=== PATIENT | female | born 1985 ===

== ENCOUNTER 2017-12-17 14:09 | Inpatient (IN) | payer BC, OTHER ==
[2017-12-17 15:46] LABS: PLATELET COUNT 175 10^3/uL (150-400)
[2017-12-17] MEDS ORDERED: ACETAMINOPHEN 500 MG TAB PO PRN (17:02)
[2017-12-17] MEDS ORDERED: MAGNESIUM OXIDE 400 MG TAB PO ONE (17:02)
--- NOTE | 2017-12-17 18:25 | PDGENHP ---
History and Physical History and Physical: CARE: [facility], Dr Hannah Witt HPI: Ms. Marga Swartz is a 32 yo @39-3wks that presents to L&D with complaints of headache and concern re: blood pressure. she states she has been receiving care at [facility] in [place] but has moved to [place] and wishes to deliver here at [facility]. She denies any visual changes, epigastric pain. She took Tylenol x1 dose this morning- with no relief of headache. She denies any regular contractions, LOF, VB. EDC: 12/21/17 which is based on Ultrasound at 6-3 weeks. LMP is unsure Her is complicated by: h/o PTD @ 33wks, UTI Review of Systems: Constitutional: Denies any fever, chills, or fatigue HEENT: denies any visual changes, difficulty swallowing, hearing loss Cardiovascular: Denies any chest pain, palpitations, leg swelling Respiratory: denies any cough, wheezing, or shortness of breathe GI: Denies any nausea, vomiting, diarrhea, constipation : denies any dysuria, urgency, frequency, vaginal bleeding Musculoskeletal: denies any muscle or bone pain Skin: denies any rashes Neuro: + headache, denies any seizures, lightheadedness, dizziness, or loss of consciousness Psychiatric: denies any depression, anxiety, or SI/HI thoughts HISTORY: Previous OB history: @ 33wks (PTL with ?abruption) Past medical history: noncontributory Past surgical history: appendectomy. ACL repair, oral surgery Medications: PNV, 17-OHP (until 36wks), nifedipine (until 36wks), macrobid, betamethasone Allergies (list reaction): NKDA LABS: Rh: O+ ABS: Neg Rubella: Immune HbsAg: NR HIV: NR VDRL: NR 1hr: 101 GC: Neg Chlamydia: Neg Pap: unknown GBS: negative PHYSICAL EXAM: Constitutional: WN, A&Ox3 HEENT: normocephalic atraumatic, supple Heart: RRR, no murmur Chest: CTA-B Abdomen: Soft, nontender, gravid SVE: 1/th/high Extremities: no edema, negative homans sign Neuro: grossly normal Psych: normal affect assessment: Reassuring FHTs, [id number] +accels, no decels, moderate variability Contractions: toco none Assessment: 1) [id number] with IUP@ 39-3 (6) 2) elective IOL 3) GBS negative 4) Cat 1 FHR tracing 5) Proteinuria (P:C 0.5) Plan: 1) Admit to L&D 2) monitor BPs closely 3) escobedo bulb placed 4) pitocin to be started in AM 5) consulted with Dr Frank- aware and agrees with plan of care
[2017-12-17] MEDS ORDERED: LR 1,000 ML IV PRN (18:26)
[2017-12-17] MEDS ORDERED: OLIVE OIL 118 ML BTL MISC PRN (18:26)
[2017-12-17] MEDS ORDERED: EPSOM SALT 454 GM TP PRN (18:26)
[2017-12-17] MEDS ORDERED: OXYTOCIN/RINGERS LACTATE 1,000 ML IV PRN (18:26)
[2017-12-17] MEDS ORDERED: MISOPROSTOL 200 MCG TAB PR PRN (18:26)
[2017-12-17] MEDS ORDERED: TERBUTALINE SULFATE 1 MG/ML VIAL IV PRN (18:26)
[2017-12-17] MEDS ORDERED: LIDOCAINE 1% 300 MG/30 ML SDV SC PRN (18:26)
[2017-12-17] MEDS ORDERED: IBUPROFEN 600 MG TAB PO PRN (18:26)
[2017-12-17] MEDS ORDERED: LR 500 ML IV PRN (18:26)
[2017-12-17] MEDS ORDERED: OXYTOCIN/RINGERS LACTATE 500 ML IV SCH (18:30)
[2017-12-17] MEDS ORDERED: ZOLPIDEM TARTRATE 5 MG TAB PO ONE (20:00)
[2017-12-18] MEDS ORDERED: PHENYLEPHRINE HCL 100 MCG/ML SYR ONE (02:58)
[2017-12-18] MEDS ORDERED: BUPIVACAINE 0.25% 30 ML SDV ONE (02:58)
[2017-12-18] MEDS ORDERED: fentaNYL 100 MCG/2 ML INJ ONE (02:59)
[2017-12-18] MEDS ORDERED: fentaNYL 200 MCG, BUPIVACAINE 0.5% 20 ML in NS 100 ML EP SCH (04:00)
--- NOTE | 2017-12-18 04:02 | PREANESOB ---
Obstetric Pre-Anesthesia Info - General Info Proposed Procedure: Induction of labor and delivery. : 2 Para: 1 LOUISE: 12/21/17 Gestational Age: 39 week(s) and 3 day(s) - Info Status: Full Term Monitors: External FHR Baseline (bpm): 125 FHR Pattern: Reassuring - Labor Status Cervical Dilation per last OB SVE: 5 Pitocin: Planned Indications for Labor Analgesia: Induction of Labor, Pain Control Labor Epidural: Proposed Anesthesia Allergies/Adverse Reactions: Allergy/AdvReac Type Severity Reaction Status Date / Time No Known Allergies Allergy Unverified 12/17/17 15:29 Home Medications: Medication Instructions Recorded Vit27&Calcium/Iron/FA 1 tab PO DAILY 12/17/17 [] Visit Medications: Generic Name Dose Route Start Last Admin Trade Name Freq PRN Reason Stop Dose Admin Acetaminophen 1,000 mg 12/17/17 17:02 12/17/17 17:23 Tylenol PO 06/15/18 17:01 1,000 mg Q6HRS PRN Administration Pain, Mild/Fever, Can Take PO Lactated Ringer's 1,000 mls @ 0 mls/hr 12/17/17 18:26 Lr IV 12/18/17 18:25 PRN PRN SEE PROTOCOL CONDITIONS Protocol Per Protocol Lactated Ringer's 500 mls @ 500 mls/hr 12/17/17 18:26 Lr IV 12/18/17 18:26 PRN PRN Maternal Hypotension Oxytocin/Lactated Ringer's 1,000 mls @ 125 mls/hr 12/17/17 18:26 Pitocin 20 Units/Lr (Premix) IV PRN PRN Post bleeding Oxytocin/Lactated Ringer's 500 mls @ 0 mls/hr 12/17/17 18:30 Pitocin 30 Units/Lr (Premix) IV 06/15/18 18:29 CONT [facility] Protocol Per Protocol Fentanyl 200 mcg/ Bupivacaine 100 mls @ 0 mls/hr 12/18/17 04:00 HCl 20 ml/ Sodium Chloride EP 12/28/17 03:59 CONT [facility] Protocol As Directed Ibuprofen 600 mg 12/17/17 18:26 Motrin PO ONCE PRN post , pain Lidocaine HCl 300 mg 12/17/17 18:26 Lidocaine Hcl 1% SC 06/15/18 18:25 ONCE PRN episiotomy Magnesium Sulfate 454 gm 12/17/17 18:26 Epsom Salt TP 06/15/18 18:25 Q1H PRN perineal discomfort Misoprostol 800 - 1,000 mcg 12/17/17 18:26 Cytotec FL ONCE PRN Vaginal Atony/Bleeding [place] Oil 118 ml 12/17/17 18:26 Sweet Oil MISC 06/15/18 18:25 ONCE PRN perineal massage Terbutaline Sulfate 0.25 mg 12/17/17 18:26 Brethine IV 06/15/18 18:25 ONCE PRN Tachysystole Discontinued Medications Generic Name Dose Route Start Last Admin Trade Name Freq PRN Reason Stop Dose Admin Bupivacaine HCl Confirm 12/18/17 02:58 Sensorcaine 0.25% Sdv Administered 12/18/17 02:59 Dose 30 ml .ROUTE .STK-MED ONE Fentanyl Confirm 12/18/17 02:59 Sublimaze Administered 12/18/17 03:00 Dose 100 mcg .ROUTE .STK-MED ONE Magnesium Oxide 400 mg 12/17/17 17:02 12/17/17 17:23 Magnesium Oxide PO 12/17/17 17:03 400 mg ONCE ONE Administration Phenylephrine HCl Confirm 12/18/17 02:58 Neosynephrine Administered 12/18/17 02:59 Dose 1,000 mcg .ROUTE .STK-MED ONE Zolpidem Tartrate 5 mg 12/17/17 20:00 12/17/17 20:39 Ambien PO 12/17/17 20:01 5 mg ONCE ONE Administration - Vital Signs Blood Pressure: 149/90 Heart Rate: 55 Height/Weight (Nursing): Height 165.1 cm Weight 70.307 kg - Focused Exam Neck exam: FROM Mallampati Score: Class 1 Mouth exam: normal dental/mouth exam Pulmonary: no respiratory distress Cardiovascular: regular rate and rhythym Labs: 12/17/17 15:30 12/17/17 15:30 Patient ABO/Rh O POSITIVE 12/17/17 18:30 Uric Acid 8.0 mg/dL (2.5-6.8) H 12/17/17 15:30 Total Bilirubin 0.3 mg/dL (0.1-1.4) 12/17/17 15:30 Conjugated Bilirubin 0.3 mg/dL (0.0-0.5) 12/17/17 15:30 Unconjugated Bilirubin 0.0 mg/dL (0.0-1.1) 12/17/17 15:30 AST 23 IU/L (14-46) 12/17/17 15:30 ALT 23 IU/L (9-52) 12/17/17 15:30 Lactate Dehydrogenase 511 IU/L (313-618) 12/17/17 15:30 - Plan Consent Signed and on Chart: Yes Patient/Guardian Understands and Agrees to Plan: Yes Urgent/Emergent Case: Clayton porter completed preop but documented later for safe timely pt care
[2017-12-18] MEDS ORDERED: PHENYLEPHRINE HCL 100 MCG/ML SYR IVP PRN (04:14)
[2017-12-18] MEDS ORDERED: ONDANSETRON 4 MG/2 ML VIAL IVP PRN ×2 (04:14→05:48)
--- NOTE | 2017-12-18 04:14 | POSTANESTH ---
Post Anesthetic Evaluation Cardiovascular Status: Normal, Stable, Similar to Pre-Op Cond Respiratory Status: Normal, Stable, Similar to Pre-op Cond. Level of Consciousness/Mental Status: Can Participate in Eval, Alert and Oriented Pain Control: Adequate, Prn Tx Ordered Nausea/Vomiting Control: Adequate, Prn Tx Ordered Complications Possibly Related to Anesthesia: None Noted (Comfortable and stable after phenylephrine x 1.)
[2017-12-18] MEDS ORDERED: LR 500 ML IV SCH (04:30)
[2017-12-18] MEDS ORDERED: fentaNYL 2MCG/ML/BUP 0.1% RTU 100 ML EP SCH (04:30)
[2017-12-18] MEDS ORDERED: LIDOCAINE 1% 300 MG/30 ML SDV ONE (05:24)
[2017-12-18] MEDS ORDERED: OLIVE OIL 118 ML BTL ONE (05:24)
[2017-12-18] MEDS ORDERED: TERBUTALINE SULFATE 1 MG/ML VIAL ONE (05:25)
[2017-12-18] MEDS ORDERED: MISOPROSTOL 200 MCG TAB ONE (05:25)
[2017-12-18] MEDS ORDERED: OXYTOCIN 10 UNIT/ML VIAL ONE (05:25)
[2017-12-18] MEDS ORDERED: AMMONIA AROMATIC 1 EACH AMP IH ONE (05:25)
--- NOTE | 2017-12-18 05:49 | OBPROG ---
Labor Progress Note Assessment/Plan: Assessment: [id number] with IUP@ 39-4wks (6) labor GBS Negative Cat 1 FHR tracing MALKA in place Plan: expectant management anticipate 12/18/17 06:10 Subjective/Intrapartum Course: 12/18/17 06:11 Pt doing well, reports some nausea and some lower "pressure in my cervix", denies any urge to push. She denies any headaches, visual changes, epigastric pain. She is comfortable with MALKA. FOB at BS and supportive. Objective: 12/17/17 15:30 12/17/17 15:30 Patient ABO/Rh O POSITIVE 12/17/17 18:30 Uric Acid 8.0 mg/dL (2.5-6.8) H 12/17/17 15:30 Total Bilirubin 0.3 mg/dL (0.1-1.4) 12/17/17 15:30 Conjugated Bilirubin 0.3 mg/dL (0.0-0.5) 12/17/17 15:30 Unconjugated Bilirubin 0.0 mg/dL (0.0-1.1) 12/17/17 15:30 AST 23 IU/L (14-46) 12/17/17 15:30 ALT 23 IU/L (9-52) 12/17/17 15:30 Lactate Dehydrogenase 511 IU/L (313-618) 12/17/17 15:30 Temp Pulse Resp BP Pulse Ox 55 L 149/90 H 12/18/17 04:12 12/18/17 04:12 - SVE Dilation (cm): 7 Effacement (%): 80 Station: -2 Membranes: SROM Amniotic Fluid Color: Clear - Contraction Pattern Assessment Current Contraction Pattern: Regular - FHR Assessment Asencio FHR (bpm): 110 (low baseline with early decels noted) FHR Pattern Variability: Moderate FHR Category: 1 CNM Assessment - Uterine Assessment Contraction Strength: Moderate Uterine Resting Tone: Palpates Soft Between Uterine Contractions Oxytocin Orders Assessment - Pre-Induction/Augmentation Assessment Presentation: Vertex Gestational Age: 39 week(s) and 3 day(s) Estimated Weight: [id number] Current Sterile Vaginal Exam (SVE): 1 - Heart Rate Pattern Asencio FHR Baseline (bpm): 110 - Induction/Augmentation Consent Risks/Benefits of Procedure Reviewed/Pt Agrees to Proceed: Yes ICD10 Worksheet Patient Problems: Problems Problem Status Onset Encounter for induction of labor Acute - ICD10 Problem Qualifiers (1) Encounter for induction of labor
[2017-12-18] MEDS ORDERED: SIMETHICONE 80 MG TAB CHEW PO PRN (07:14)
[2017-12-18] MEDS ORDERED: HYDROCORTISONE 0.5% CREAM TP PRN (07:14)
[2017-12-18] MEDS ORDERED: DOCUSATE SODIUM 100 MG CAP PO PRN (07:14)
[2017-12-18] MEDS ORDERED: HYDROCODONE/APAP 5/325 TAB PO PRN (07:14)
[2017-12-18] MEDS ORDERED: ACETAMINOPHEN 325 MG TAB PO PRN (07:14)
--- NOTE | 2017-12-18 07:19 | OBDEL ---
Info Type: Vaginal Presentation at Delivery: Vertex L&D Analgesia/Anesthesia Type: Epidural GBS+: No Intrapartum Medications: Generic Name Dose Route Start Last Admin Trade Name Freq PRN Reason Stop Dose Admin Acetaminophen 1,000 mg 12/17/17 17:02 12/17/17 17:23 Tylenol PO 06/15/18 17:01 1,000 mg Q6HRS PRN Administration Pain, Mild/Fever, Can Take PO Ondansetron HCl 4 mg 12/18/17 05:48 12/18/17 05:55 Zofran IVP 06/16/18 05:47 4 mg Q4HRS PRN Administration Nausea/Vomiting, Can't Take PO Discontinued Medications Generic Name Dose Route Start Last Admin Trade Name Freq PRN Reason Stop Dose Admin Magnesium Oxide 400 mg 12/17/17 17:02 12/17/17 17:23 Magnesium Oxide PO 12/17/17 17:03 400 mg ONCE ONE Administration Zolpidem Tartrate 5 mg 12/17/17 20:00 12/17/17 20:39 Ambien PO 12/17/17 20:01 5 mg ONCE ONE Administration - Hospital Course Intrapartum: 12/18/17 06:11 Pt doing well, reports some nausea and some lower "pressure in my cervix", denies any urge to push. She denies any headaches, visual changes, epigastric pain. She is comfortable with MALKA. FOB at BS and supportive. Indications for Delivery: Elective Vaginal Delivery - Delivery Provider Delivery Physician/CNM: Rafia Washington - Labor and Delivery Onset of Contractions Date: 12/12/17 Onset of Contractions Time: 02:00 Onset of Contractions Type: Induced Rupture of Membranes Date: 12/18/17 Rupture of Membranes Time: 05:11 Rupture of Membranes Type: Spontaneous Amniotic Fluid Color: Clear Dilation Complete Date: 12/18/17 Dilation Complete Time: 06:35 Placenta Delivery Date: 12/18/17 Placenta Delivery Time: 06:57 Total Hours of Labor: 148 Laceration: 1st Degree Repair: 3-0, Vicryl Vaginal Sponge Count Correct: Yes Vaginal Needle Count Correct: Yes Vaginal Sweep Performed: Yes EBL: 200 Delivery Events: Other (Specify) (compound left arm) Delivery Comment: delivered with MALKA, pushed great. baby delivered LOGAN with compound left arm. - Medications Labor Augmentation/Induction Methods Used: [place]on Bulb Labor Augmentation/Induction Indication: Elective Data LOUISE: 12/21/17 Gestational Age: 39 week(s) and 4 day(s) Asencio Delivery Date: 12/18/17 Delivery Time: 06:51 Sex of Infant: Male Score (1 Min): 8 Score (5 Min): 9 ICD10 Worksheet Patient Problems: Problems Problem Status Onset Encounter for induction of labor Acute First degree perineal laceration Acute (spontaneous vaginal delivery) Acute - ICD10 Problem Qualifiers (1) Encounter for induction of labor (2) (spontaneous vaginal delivery) (3) First degree perineal laceration
[2017-12-18] MEDS: IBUPROFEN 600 MG TAB PO PRN ×2 (15:06→21:14)
[2017-12-19] MEDS: IBUPROFEN 600 MG TAB PO PRN ×2 (04:20→11:20)
--- NOTE | 2017-12-19 10:48 | OBGCSDC ---
General Delivery Information - General Info : 2 Para: 2 Abortions: 0 Type: Vaginal L&D Analgesia/Anesthesia Type: Epidural Admission Date: 12/17/17 Labs: Patient ABO/Rh O POSITIVE 12/17/17 18:30 Hct 37.6 % (38.0-47.0) L 12/17/17 15:30 - Hospital Course Intrapartum: 12/18/17 06:11 Pt doing well, reports some nausea and some lower "pressure in my cervix", denies any urge to push. She denies any headaches, visual changes, epigastric pain. She is comfortable with MALKA. FOB at BS and supportive. : 12/19/17 10:42 S) Pt doing well, reports min pain and bleeding. she is ambulating and voiding without difficulty. She is . She desires discharge home today. O) VSS, afebrile constitutional: WNWF, A&Ox3 HEENT: normocephalic, atraumatic, supple Heart: RRR, No murmur Chest: CTA-B Abdomen: Soft, nontender Uterus: Firm at U-2 Lochia: Minimal rubra Perineum: Healing well Extremities: Trace edema, and negative Rolf's sign Neuro: Grossly normal A) [id number] S/P PPD#1 P) Discharge home today Continue Pelvic rest x6wks Discussed danger signs (infection, preeclampsia, depression, heavy bleeding, etc ) RTO in 2/6 weeks Vaginal - Delivery Provider Delivery Physician/CNM: Rafia Washington - Diagnosis Labor: Induced Rupture of Membranes Type: Spontaneous Amniotic Fluid Color: Clear Laceration: 1st Degree Repair: 3-0, Vicryl Delivery Events: Other (Specify) (compound left arm) - Delivery EBL: 200 Data LOUISE: 12/21/17 Gestational Age: 39 week(s) and 5 day(s) Asencio Delivery Date: 12/18/17 Delivery Time: 06:51 Sex of Infant: Male Weight (gm): 2614 g Score (1 Min): 8 Score (5 Min): 9
[2017-12-19 14:50] VITALS: BP 122/71
== END 2017-12-19 15:30 | disposition home or self-care (01) | DRG 775 ==
LOC: FLD 14:09 → OBSVTOIN 18:26 → FOB 12-18 18:01
PROVIDERS: ADMIT Advanced Practice Midwife; ATTEND Advanced Practice Midwife
PROC: 0HQ9XZZ Repair Perineum Skin, External Approach (ICD-10-PCS; principal; 2017-12-18)
PROC: 0U7C7ZZ Dilation of Cervix, Via Natural or Artificial Opening (ICD-10-PCS; principal; 2017-12-18)
PROC: 10E0XZZ Delivery of Products of Conception, External Approach (ICD-10-PCS; principal; 2017-12-18)
DX: O70.0 First degree perineal laceration during delivery (principal); Z37.0 Single live birth; Z3A.39 39 weeks gestation of pregnancy
CPT/HCPCS: J2370; J2405; J2590; J3010; J3105